=== PATIENT | male | born 1960 | race Asian ===

== ENCOUNTER 2017-10-07 05:21 | Emergency (ER) | payer MEDICAID, MEDICARE ==
--- NOTE | 2017-10-07 05:43 | NUR ---
CALLED FOR PT HE DECIDED NOT TO BE SEEN [facility]
== END 2017-10-07 05:45 | disposition left against medical advice (07) ==
LOC: ER 05:25
DX: Z53.21 Procedure and treatment not carried out due to patient leaving prior to being seen by health care provider (principal)